=== PATIENT | male | born 1965 | race Caucasian/White ===

== ENCOUNTER 2019-06-06 16:14 | Emergency (ER) | payer OTHER ==
[2019-06-06] MEDS ORDERED: Tetan/Diph/Pertus SYR(Tdap)* 0.5 ML SYR(BOOSTRIX) use SYR contains LATEX IM ONE (16:21)
[2019-06-06 16:34] VITALS: BP 121/68
--- NOTE | 2019-06-06 16:35 | UC ---
Laceration HPI - HPI Summary HPI Summary: 53 yo male presents with LEFT forearm laceration. He tells me that about 20min [employer] he was using a grinder dresser and it slipped and he sustained a laceration to his left forearm. He bandaged the area and came to . Thinks date of last tetanus was 15 years ago. - History Of Current Complaint Chief Complaint: UCLaceration Stated Complaint: ARM LAC Time Seen by Provider: 06/06/19 16:35 Hx Obtained From: Patient Laceration Location: Arm Mechanism Of Injury: Sharp Trauma Pain Intensity: 3 - Allergies/Home Medications Allergies/Adverse Reactions: Allergies Allergy/AdvReac Type Severity Reaction Status Date / Time acetaminophen [From Tylenol] Allergy Difficulty Verified 06/06/19 16:28 Breathing Home Medications: Home Medications NK [No Home Medications Reported] 06/06/19 [History Confirmed 06/06/19] PMH/Surg Hx/FS Hx/Imm Hx - Additional Past Medical History Additional PMH: None - Surgical History Surgical History: None - Family History Known Family History: Positive: Hypertension - Social History Occupation: Employed Full-time Lives: With Family Alcohol Use: Occasionally Substance Use Type: None Smoking Status (MU): Heavy Every Day Tobacco Smoker Review of Systems All Other Systems Reviewed And Are Negative: No Constitutional: Positive: Negative Skin: Positive: Other - Left forearm laceration Respiratory: Positive: Negative Cardiovascular: Positive: Negative Musculoskeletal: Positive: Negative Neurological: Positive: Negative Psychological: Positive: Negative Physical Exam - Summary Physical Exam Summary: GENERAL: NAD. WDWN. No pain distress. SKIN: LEFT FOREARM: dorsal radial aspect with linear 2.6cm partial thickness laceration with mild bleeding. Clean appearing. No tendon or bony involvement. CHEST: No accessory muscle use. Breathing comfortably and in no distress. CV: Pulses intact. Cap refill <2seconds NEURO: Alert. PSYCH: Age appropriate behavior. Triage Information Reviewed: Yes Vital Signs: Initial Vital Signs Temp 97.8 F 06/06/19 16:29 Pulse 66 06/06/19 16:29 Resp 18 06/06/19 16:29 BP 121/68 06/06/19 16:29 Pulse Ox 98 06/06/19 16:29 Vital Signs Reviewed: Yes Laceration Repair - Laceration Repair 1 Description: Linear Laceration Size After Repair: Length (cm) - 2.6 Anesthesia Used: 2.0% Lido Irrigation With Pressure Irrigation Device: Yes Closure Material: Sutures Closure Method: Single Layer Suture Of: Skin Suture Type: Prolene Laceration Course/Dx - Course/Dx Course Of Treatment: The procedure was explained to the pt and all questions were answered. A time out was performed, witnessed, and signed. The area was irrigated with 20mL sterile saline. 2mL of 2% lidocaine without epi was administered and good anesthetization was achieved. In the usual sterile fashion, FIVE 4-0 prolene interrupted sutures were placed. Homeostasis achieved. The wound was bandaged with telfa . Pt tolerated procedure well. tdap updated today - Diagnosis Provider Diagnosis: Forearm laceration Discharge ED - Sign-Out/Discharge Documenting (check all that apply): Patient Departure All imaging exams completed and their final reports reviewed: No Studies - Discharge Plan Condition: Stable Disposition: HOME Patient Education Materials: Care For Your Stitches (ED), Laceration (ED) Referrals: No Primary Care Phys,NOPCP [Primary Care Provider] - Additional Instructions: 1) Please keep the area bandage, clean, dry, and intact for the next 24- 48hours. Then change the bandage daily until sutures are removed. 2) If you develop a fever, colored or thick discharge, increased pain or swelling - please call your PCP or return for a wound check. 3) Please return in 9-10 days to have your FIVE sutures removed. - Billing Disposition and Condition Condition: STABLE Disposition: Home
[2019-06-06] MEDS ORDERED: Lidocaine 2% PF * 5 ML VIAL INJ ONE (16:39)
== END 2019-06-06 17:22 | disposition home or self-care (01) ==
LOC: UCEAST 16:14
DX: S51.812A Laceration without foreign body of left forearm, initial encounter (principal); F17.290 Nicotine dependence, other tobacco product, uncomplicated; Z88.6 Allergy status to analgesic agent; W31.89XA Contact with other specified machinery, initial encounter; Y92.9 Unspecified place or not applicable
CPT/HCPCS: 12002; 90471; 90715; 99201; G0463